=== PATIENT | female | born 1980 | race African-American/Black ===

== ENCOUNTER 2019-11-28 04:27 | Inpatient (IN) | payer OTHER ==
[2019-11-27 11:01] VITALS: BMI 34.8
--- OUTSIDE RECORDS SUMMARY | 2019-11-28 04:31 | XMS ---
:1980 Author Organization [facility] Support Name Relationship Address Phone [facility] Unavailable [address] [place] [address] [facility] Unavailable [address] [place] [address] LOIDA BARCENAS [address] [place] [address] Re-disclosure Warning The records that you are about to access may contain information from federally- assisted alcohol or drug abuse programs. If such information is present, then the following federally mandated warning applies: This information has been disclosed to you from records protected by federal confidentiality rules (42 CFR part 2). The federal rules prohibit you from making any further disclosure of this information unless further disclosure is expressly permitted by the written consent of the person to whom it pertains or as otherwise permitted by 42 CFR part 2. A general authorization for the release of medical or other information is NOT sufficient for this purpose. The Federal rules restrict any use of the information to criminally investigate or prosecute any alcohol or drug abuse patient.The records that you are about to access may contain highly sensitive health information, the redisclosure of which is protected by Article 27-F of the [facility] Public Health law. If you continue you may haveaccess to information: Regarding HIV / AIDS; Provided by facilities licensed or operated by the [facility] Office of Mental Health; or Provided by the [facility] Office for People With Developmental Disabilities. If such information is present, then the following [facility] mandated warning applies: This information has been disclosed to you from confidential records which are protected by state law. State law prohibits you from making any further disclosure of this information without the specific written consent of the person to whom it pertains, or as otherwise permitted by law. Any unauthorized further disclosure in violation of state law may result in a fine or detention sentence or both. A general authorization for the release of medical or other information is NOT sufficient authorization for further disclosure. Encounters Encounter Providers Location Date Indications Data Source(s ) Outpatient 02/21/2019 11:25:00 [facility] ([facility]) Outpatient 02/20/2019 09:31:00 [facility] ([facility]) Outpatient 01/06/2019 06:43:00 [facility] ([facility]) Outpatient 01/05/2019 06:53:00 [facility] ([facility]) Insurance Providers Payer name Policy type / Policy ID Covered Covered alliance party's Policy Plan Coverage type alliance party ID relationship to Bradley Information bradley [employer] PPO [id number] SP [id number] Results ID Date Data Source [id number] 11/23/2019 09:00:00 AM EDT [facility] Name Value Range Interpretation Description Data Sup porting Code Source(s) Document(s ) SARS [facility] coronavirus 2 RNA This lab was ordered by [facility] and reported by [facility]. ID Date Data Source [id number] 11/12/2019 03:48:00 PM EDT [facility] Name Value Range Interpretation Description Data Sup porting Code Source(s) Document(s ) SARS [facility] Coronavirus 2 RNA Presence Respiratory Specimen [facility] Probe Detection This lab was ordered by [facility] and rep orted by [facility]. Procedure
[2019-11-28] MEDS ORDERED: BUPIVACAINE LIPOSOME/PF (EXPAREL) 266 MG/20 ML VIAL ONE (12:04)
[2019-11-28 12:56] LABS: BASO % 0.9 % (0-2.0); EOS % 2.5 % (0-4.5); HEMOGLOBIN 11.4 GM/dL (10.7-15.3); MCH 27.6 pg (25.7-33.7); MCHC 31.8 g/dl (32.0-36.0); MEAN CELL VOLUME 86.8 fl (80-96); MEAN PLT VOLUME 9.8 fl (7.5-11.1); MONO % 10.2 % (3.8-10.2); NEUT % 45.4 % (42.8-82.8); PLATELET COUNT 235 K/MM3 (134-434); RBC 4.14 M/mm3 (3.60-5.2); RDW 17.2 % (11.6-15.6); WHITE BLOOD COUNT 5.3 K/mm3 (4.0-10.0)
[2019-11-28] MEDS ORDERED: PROPOFOL 20 ML ONE ×5 (13:22→14:02)
[2019-11-28] MEDS ORDERED: MIDAZOLAM HCL 2 MG/2 ML SINGLE DOSE VIAL ONE ×3 (13:22)
[2019-11-28] MEDS ORDERED: SUCCINYLCHOLINE CHLORIDE 200 MG/10 ML SYRINGE ONE (13:23)
[2019-11-28] MEDS ORDERED: ROCURONIUM BROMIDE 50 MG/5 ML SYRINGE ONE ×2 (13:23→13:43)
[2019-11-28] MEDS ORDERED: BUPIVACAINE HCL/PF 0.25% (2.5MG/ML) 10 ML VIAL ONE (13:23)
[2019-11-28] MEDS ORDERED: ONDANSETRON 4 MG/2 ML VIAL IVPUSH PRN ×2 (13:35→13:36)
[2019-11-28] MEDS ORDERED: PROMETHAZINE HCL 25 MG/1 ML VIAL IVPB PRN (13:36)
[2019-11-28] MEDS ORDERED: DEXAMETHASONE SOD PHOSPHATE 4 MG/1 ML VIAL IVPUSH PRN (13:36)
[2019-11-28] MEDS ORDERED: HYDROmorphone *PCA* 10MG/50ML DISP.SYRIN PCA SCH (13:45)
[2019-11-28] MEDS ORDERED: ceFAZolin SODIUM 1 GM VIAL IVPB ONE (13:55)
[2019-11-28] MEDS ORDERED: DOCUSATE SODIUM 100 MG CAPSULE (FP) PO PRN (14:07)
[2019-11-28] MEDS ORDERED: BISACODYL 5 MG TABLET.DR (FP) PO PRN (14:07)
[2019-11-28] MEDS ORDERED: IBUPROFEN 800 MG/8 ML IJ IVPB PRN (14:07)
[2019-11-28] MEDS ORDERED: EPHEDRINE SULFATE/0.9% NACL/PF 50 MG/10 ML SYRINGE NR ONE (15:23)
[2019-11-28] MEDS ORDERED: ACETAMINOPHEN 1000 MG/100 ML VIAL (NON FORMULARY) IVPB SCH ×2 (15:45→18:00)
[2019-11-28] MEDS ORDERED: NEOSTIGMINE METHYLSULFATE 0.5 MG/ML - 10 ML MDV ONE (15:51)
--- NOTE | 2019-11-28 16:10 | OP ---
Operative Note - Note: Operative Date: 11/28/19 Pre-Operative Diagnosis: Menorrhagia, pelvic pain. Uterine leiomyomata. Operation: Open myomectomies. Post-Operative Diagnosis: Same as Pre-op Anesthesia: General Specimens Removed: 4 fibroids Estimated Blood Loss (mls): 100 Operative Report Dictated: Yes
[2019-11-28] MEDS ORDERED: HYDROmorphone *PCA* 10MG/50ML DISP.SYRIN ONE (16:46)
--- NOTE | 2019-11-28 16:47 | SURG ---
Surgery Green Inspector Note Green Inspector: Madhu Lees PA-C (Suzy) Date of Service: 11/28/19 Diagnosis: Menorrhagia, pelvic pain. Uterine leiomyomata. Procedure: Operation: Open myomectomies. I was present for the entirety of the operative procedure. For further detail, please refer to operative report.
[2019-11-28] MEDS: KETOROLAC TROMETHAMINE 30 MG/1 ML VIAL IVPUSH SCH (16:50)
[2019-11-28] MEDS ORDERED: KETOROLAC TROMETHAMINE 30 MG/1 ML VIAL ONE (16:57)
[2019-11-28] MEDS ORDERED: KETOROLAC TROMETHAMINE 30 MG/1 ML VIAL IVPUSH SCH (18:00)
[2019-11-28] MEDS ORDERED: CEFAZOLIN 1 GM in DEXTROSE 5%-WATER - 50 ML IVPB SCH (18:00)
--- NOTE | 2019-11-28 18:33 | PN ---
Progress Note (short form) - Note Progress Note: Post Op Note. Stable. Doing well. All explained.
[2019-11-28] MEDS: oxyCODONE HCL 5 MG TABLET PO PRN (19:22)
--- NOTE | 2019-11-28 19:26 | OP ---
DATE OF OPERATION: DATE OF DICTATION: 11/28/2019 PREOPERATIVE DIAGNOSIS: 1. Menorrhagia, with iron-deficiency anemia. Pelvic pain. 2. Large, growing, uterine leiomyomata. POSTOPERATIVE DIAGNOSIS: 1. Menorrhagia, with iron-deficiency anemia. Pelvic pain. 2. Large, growing, uterine leiomyomata. PROCEDURE: Open multiple myomectomies. SURGEON: Patricia Dexter MD. PROFESSIONAL BENEFITS SALES CONSULTANT: ANISH Mortensen. ANESTHESIOLOGIST: Dr. Austin. ANESTHESIA: General anesthesia. PROCEDURE AND FINDINGS: Under general anesthesia in dorsal supine position, patient was prepped and draped in a normal fashion. Abdomen was entered through the old, well-healed Pfannenstiel scar. A fair amount of scar tissue was noted in the subcutaneous area which was divided transversely. Fascia was divided transversely and rectus muscles were dissected off the fascia. Peritoneum was entered sharply, and incision was extended vertically. Large, compatible with 16 to 17 weeks of gestation, uterus was noted with adenomyosis and multiple leiomyomata. It was elevated above the incision, secured and prepared for the myomectomy. Adnexa were bilaterally within normal limits with small cyst on the right side. No adhesions. Remains of the abdomen were briefly checked and noted to be within normal limits. There were 2 large anterior, right-sided myomas and 2 separate posterior ones. There was also 1 small myoma located very close to the right uterine vessels which was a somewhat risky position. Anterior incision was carried out diagonally using Bovie and both myomas were carefully dissected using Bovie, blunt dissection, as well as clamping and coagulating. The anterior myoma was removed first and the base and the crater that was left was secured with interrupted [id number] Vicryl 0 sutures. Second myoma was removed through the same incision; it was elongated and irregular, and the crater was also fairly deep but not entering the endometrial cavity. The 2nd crater was closed with the same [id number] Vicryl 0 sutures. Additional Vicryl sutures were then used to approximate the edges of uterine muscle and to obtain hemostasis. For the last layer, 2 baseball Biosyn 2-0 sutures were used starting from the opposite poles of the incision. Hemostasis was excellent when it was completed. Posterior aspect of the uterus was addressed and 2 somewhat smaller but still substantial fibroids were removed from 2 separate incisions. The 1st one was almost in the midline slightly to the left, and the 2nd one was low on the right side. Both incisions were vertical. Myomas were removed, craters were repaired with Vicryl 2-0, and last layer was in both areas continuous running Biosyn 2-0 baseball suture. Pelvis was thoroughly lavaged. Pelvis was examined and hemostasis was attended to. All incisions were then covered with Interceed before uterus was placed anatomically in the pelvis. Sponge, instrument, and needle count was correct. Abdomen was closed in layers with peritoneum closed with continuous running Biosyn 2-0, fascia with continuous running Vicryl 1 running sutures, subcutaneous tissue with interrupted 3-0 Vicryl sutures, and skin edges were approximated in a subcuticular fashion using Biosyn 3-0 running suture and Steri-Strips. Sterile dressing was placed and held in place with a binder. Estimated blood loss was 100 mL. Patient withstood the procedure very well. There was no complication with the surgical aspect as well as with the anesthesia. Patient was transferred to PACU stable, comfortable, and awake. PATRICIA DEXTER MD [id number] MTDMine
[2019-11-28] MEDS: LACTATED RINGERS SOLUTION 1,000 ML IV SCH (19:41)
[2019-11-28] MEDS ORDERED: ceFAZolin SODIUM 1 GM VIAL ONE (21:19)
[2019-11-28] MEDS ORDERED: DEXTROSE 5%-WATER - 50 ML IVPB ONE (21:19)
[2019-11-28] MEDS: CEFAZOLIN 1 GM in DEXTROSE 5%-WATER - 50 ML IVPB SCH (21:41)
[2019-11-28] MEDS: ACETAMINOPHEN 1000 MG/100 ML VIAL (NON FORMULARY) IVPB SCH (21:41)
[2019-11-29] MEDS: LACTATED RINGERS SOLUTION 1,000 ML IV SCH ×2 (02:30→09:51)
[2019-11-29] MEDS: ACETAMINOPHEN 1000 MG/100 ML VIAL (NON FORMULARY) IVPB SCH ×3 (03:45→16:42)
[2019-11-29] MEDS ORDERED: DEXTROSE 5%-WATER - 50 ML IVPB ONE ×2 (05:03→14:55)
[2019-11-29] MEDS ORDERED: ceFAZolin SODIUM 1 GM VIAL ONE ×2 (05:03→14:55)
[2019-11-29] MEDS: CEFAZOLIN 1 GM in DEXTROSE 5%-WATER - 50 ML IVPB SCH ×2 (05:42→15:04)
[2019-11-29] MEDS: oxyCODONE HCL 5 MG TABLET PO PRN (06:53)
[2019-11-29 07:48] LABS: HEMOGLOBIN 10.4 GM/dL (10.7-15.3); MCH 27.9 pg (25.7-33.7); MCHC 32.5 g/dl (32.0-36.0); MEAN CELL VOLUME 85.9 fl (80-96); MEAN PLT VOLUME 10.2 fl (7.5-11.1); PLATELET COUNT 197 K/MM3 (134-434); RBC 3.73 M/mm3 (3.60-5.2); RDW 16.8 % (11.6-15.6); WHITE BLOOD COUNT 11.3 K/mm3 (4.0-10.0)
--- NOTE | 2019-11-29 08:53 | PN ---
Progress Note (short form) - Note Progress Note: Doing well. OOB, hungry. Incision clean and dry. Discussed procedure. Poss. discharge today in PM.
[2019-11-29] MEDS ORDERED: TOPIRAMATE 25 MG TABLET PO SCH (10:00)
--- NOTE | 2019-11-29 11:06 | PN ---
Progress Note (short form) - Note Progress Note: POD 1, s/p open abdominal myomectomy Pt seen and examined. Reports she is feeling well. Was oob standing last night. Segura still in place. Pain controlled by pain regimen. Slept without issue. No flatus. Tolerating clears. Denies cp/sob, n/v/d. Vital Signs Temp 99.7 F H 11/29/19 06:00 Pulse 77 11/29/19 06:00 Resp 18 11/29/19 06:00 BP 132/85 11/29/19 06:00 Pulse Ox 95 11/29/19 06:00 Intake & Output 11/28/19 11/28/19 11/29/19 11:59 23:59 11:59 Intake Total 2830 2330 Output Total 920 1000 Balance 1910 1330 Weight 203 lb Intake: IV 2550 1500 Lactated Ringers Solution 1500 1,000 ml @ 125 mls/hr IV ASDIR CRISTIAN Rx#: [id number] IVPB 250 Oral 280 580 Output: Urine 920 1000 Segura 500 1000 Other: Voiding Method Indwelling Catheter Toilet Bowel Movement No No Height 5 ft 4 in Body Mass Index (BMI) 34.8 Weight Measurement Method Stated by Patient CBC, BMP 11/29/19 06:34 Gen: awake, alert, nad Resp: unlabored on RA Abdo: soft, + ttp at incision site (appropriate to status), binder in place, dressing with minimal serosanguionous drainage. No erythema or drainage from incision. A/P: 39 y/o F w/ PMHx brain aneurysm s/p coil, seizure d/o on Topiramate, fibr oids, now POD 1, s/p open abdo myomectomy afebrile, vss labs reviewed h/h reviewed -pain control as ordered -segura out this am, tov -reg diet, d/c ivf if tolerating po -oob ad mindy -lovenox 40mg qd for dvt prophylaxis, early ambulation, scds while in bed -home meds ordered as appropriate -possible d/c later today depending upon above follow up: pt doing well, pain controlled, passed tov. D/c tonight. Scripts sent to [facility], sara aware d/w attending Dr Dexter
[2019-11-29] MEDS: KETOROLAC TROMETHAMINE 30 MG/1 ML VIAL IVPUSH SCH (12:13)
--- NOTE | 2019-11-29 13:26 | PN ---
Progress Note (short form) - Note Progress Note: Anesthesia Post Op Note Pt s/p GA w/ TAP blocks for abd myomectomy Pt denies n/v, puritis, urinary retention ambul well good pain control VSS no apparent anesthesia complications Yaz Lopez.
[2019-11-29 13:30] VITALS: BP 121/65; PULSE 75; TEMP 99
--- NOTE | 2019-11-30 14:19 | PATH ---
Surgical Pathology Report Patient Name: EDWIN BARCENAS Med. Rec. #: [id number] /Age/Gender: 1980 (Age: 39) / F Account: [id number] Location: [address] [place] [address]/[facility] Taken: 11/28/2019 Received: 11/29/2019 Reported: 11/30/2019 Physicians: Jeevan Dexter MD Specimen(s) Received MYOMAS OF UTERUS Clinical History Leiomyoma of uterus Final Diagnosis MYOMAS OF UTERUS, ABDOMINAL MYOMECTOMY: 96 G, LEIOMYOMA(TA). Electronically Signed Lashonda Putnam M.D. Gross Description Received in formalin labeled "leiomyomas of uterus," is a 96 g aggregate of 4 cho, firm to rubbery nodules ranging from 2.6-6.0 cm in greatest dimension. Sectioning reveals cho, firm to rubbery parenchyma with whorled architecture. No areas of hemorrhage or necrosis are identified. Fire Support Specialist sections are submitted in 6 cassettes as follows: 0-1-dbkxiquswgdmgm smaller fibroids; 6-5-etxfwxidpcjccr largest fibroid. DL/11/29/2019 saudi/11/29/2019
== END 2019-11-29 18:29 | disposition home or self-care (01) | DRG 743 ==
LOC: J2C 04:27 → EDSTATUS 14:30 → J6S 18:16
PROVIDERS: ADMIT Specialist; ATTEND Specialist
PROC: 0UB90ZZ Excision of Uterus, Open Approach (ICD-10-PCS; principal; 2019-11-28 13:00)
DX: D25.9 Leiomyoma of uterus, unspecified (principal); N92.0 Excessive and frequent menstruation with regular cycle; D50.9 Iron deficiency anemia, unspecified
CPT/HCPCS: 36415; 84703; 85025; 85027; 86850; 86900; 86901; 88305-TC; 94010; 94760; J0131